=== PATIENT | female | born 1955 | race Caucasian/White ===

== ENCOUNTER → 2020-11-13 | Outpatient (CLI) | payer MEDICARE ==
[2020-11-14 09:47] LABS: Stool Occult Bld Immuno 1 Negative (NEGATIVE)
== END | disposition home or self-care (01) ==
LOC: LAB SHORT 14:42 → LAB 14:42 → LAB FUT 09-27 12:20
PROVIDERS: Family Medicine
DX: Z12.11 Encounter for screening for malignant neoplasm of colon (principal); E78.5 Hyperlipidemia, unspecified; R79.9 Abnormal finding of blood chemistry, unspecified
CPT/HCPCS: G0328

== ENCOUNTER 2024-10-24 08:54 | Day surgery (SDC) | payer OTHER ==
[~2024-10-24] VITALS: Ht 160 cm; Wt 50.9 kg
[2024-10-24] VITALS (15 sets, daily range): BP systolic 90–137; BP diastolic 52–91
[~2024-10-24 08:54] MED LIST: ALEN70 PO; CeFAZolin Sodium 2,000 MG in NS 100 ML IV SCH
[2024-10-24] MEDS ORDERED: Bupivacaine 0.25% Epi 1:200000 30 ML Vial ONE ×2 (09:27→13:28)
[2024-10-24] MEDS ORDERED: Midazolam HCl 1MG / ML 2ML Vial ONE (09:55)
[2024-10-24] MEDS ORDERED: FentaNYL Citrate 50 MCG/ML 5 ML Injection ONE (09:55)
[2024-10-24] MEDS ORDERED: Rocuronium Bromide 10 MG/ML 5ML Injection IV ONE (09:56)
[2024-10-24] MEDS ORDERED: Ondansetron HCl 2 MG / ML 2ML Vial ONE (10:30)
[2024-10-24] MEDS ORDERED: Dexamethasone Sod Phos 10 MG/ML 1ML VIAL ONE (10:30)
[2024-10-24] MEDS ORDERED: HYDROmorphone HCl/Pf 1MG SYR IV PRN ×2 (12:45)
[2024-10-24] MEDS ORDERED: Ondansetron HCl 2 MG / ML 2ML Vial IV PRN ×2 (12:45→15:10)
[2024-10-24] MEDS ORDERED: FentaNYL Citrate 50 MCG/ML 2 ML Injection IV PRN ×3 (12:45→15:15)
[2024-10-24] MEDS ORDERED: Sugammadex Sodium 200 MG/2ML SDV (100 MG/ML) ONE (12:55)
[2024-10-24] MEDS ORDERED: Ketorolac Tromethamine 30mg Vial ONE (12:55)
[2024-10-24] MEDS ORDERED: Estradiol Vag Cream 0.1 MG/G 42.5 GM Tube ONE (13:58)
--- NOTE | 2024-10-24 14:03 | NUR ---
10/24/24 1403 Abida Briones ESTRADIOL VAGINAL CREAM 0.01% GIVEN TO STERILE FIELD. VAGINAL PACKING WAS THEN COATED IN ESTRADIOL VAGINAL CREAM AND PLACED IN VAGINA.
[2024-10-24] MEDS ORDERED: HYDROmorphone HCl/Pf 1MG SYR ONE (14:32)
--- NOTE | 2024-10-24 15:44 | NUR ---
ARRIVAL TO UNIT AFTER RECEIVING REPORT FROM CLOTH DESIZING RANGE OPERATOR CHIEF, PATIENT TRANSFERRED TO UNIT VIA GURNEY AT APPROX 1530. S/P ROBOTIC TOTAL LAP HYSTER. VSS. ON ROOM AIR, SATs >90%. X4 LAP SITES W/ WOUND GLUE C/D/I. DENIES PAIN. DENIES N/V - WATER AND SMALL SNACKS WITHIN REACH. IVF INFUSING TO GRAVITY. DIAZ CATHETER IN PLACE - DRAINING YELLOW URINE TO GRAVITY. ORDERS TO REMOVE W/ VAGINAL PACKING THE MORNING OF POD 1. NO BLEEDING NOTED ON JONATHAN PAD. SPOUSE AT BEDSIDE. CALL LIGHT IN REACH.
[2024-10-24] MEDS ORDERED: Ketorolac Tromethamine 30mg Vial IV SCH (18:00)
--- NOTE | 2024-10-24 18:07 | NUR ---
SHIFT SUMMARY NO ACUTE CHANGES SINCE ARRIVAL TO UNIT. S/P ROBOTIC TOTAL LAP HYSTER. VSS. X4 LAP SITES W/ WOUND GLUE C/D/I. TOLERATING PO INTAKE. DIAZ IN PLACE - DRAINING YELLOW URINE TO GRAVITY. VAGINAL PACKING IN PLACE - TO BE REMOVED POD 1 MORNING. SCANT VAGINAL BLEEDING ON PAD. BED MOBILE, HAS YET TO AMBULATE OOB POST OP. CALL LIGHT IN REACH. SPOUSE AT BEDSIDE.
--- NOTE | 2024-10-24 19:15 | NUR ---
ASSUMED CARE ASSUMED CARE, REPORT RECEIVED FROM DAY RN, YARA. PT IS AOX4 W/VSS. DENIES N/T, N/V, CHEST PAIN OR PRESSURE. ABD LAP SITES W/TISSUE ADHESIVE CDI, NO DRAINAGE NOTED. NO VAGINAL BLEEDING AT THIS TIME. IS MELANI PO INTAKE. IV PATENT. PAIN MANAGED PER EMAR. DIAZ TO GRAVITY DRAIN WITH YELLOW URINE NOTED. PT EAGER FOR DISCHARGE HOME. NO ORDERS AT THIS TIME. FAMILY ATTENTIVE AT BEDSIDE. HAS CALL LIGHT IN REACH. PLANS TO AMBULATE SOON WITH ASSISTANCE
--- NOTE | 2024-10-25 04:28 | NUR ---
SHIFT SUMMARY NO ACUTE CHANGES T/O SHIFT. PT ORIGINALLY REQUESTED TO D/C HOME AROUND 2100, BUT ULTIMATELY DECIDED TO STAY RELATED TO BEING "SO LATE AT NIGHT." PACKING AND DIAZ REMOVED. PT IS POD 1 S/P ROBOTIC HYSTER WITH A&P REPAIR. SCANT BLEEDING NOTED. PAIN MANAGED PER EMAR. PT VOIDING AND TOLERATING PO INTAKE, DENIES N/V. A/OX4 WITH VSS. IS AMBULATING IND/SBA. DC INSTRUCTIONS PROVIDED. IV PATENT AND SL. PLAN FOR DC IN THE MORNING. WILL GIVE REPORT TO ONCOMING RN. HAS CALL LIGHT IN REACH AND ABLE TO MAKE NEEDS KNOWN.
[2024-10-25 05:24] VITALS: BP 113/66
[2024-10-25 07:13] VITALS: BP 108/56
--- NOTE | 2024-10-25 09:12 | NUR ---
DISCHARGE NOTE THIS RN ASSUMED CARE AT APPROX 0715. POD 1 ROBOTIC TOTAL LAP HYSTER. VSS. PAIN MANAGED W/ PRESCRIBED MEDICATION, KPAD. VSS. X4 LAP SITES C/D/I. REPORTS SCANT VAGINAL BLEEDING. VAGINAL PACKING REMOVED BY NIGHT RN. VOIDING SINCE DIAZ REMOVAL BY NIGHT RN. TOLERATING PO INTAKE. WRITTEN AND VERBAL EDUCATION PROVIDED BY NIGHT RN - PATIENT STATES UNDERSTANDING THIS MORNING. IV REMOVED. PERSONAL BELONGINGS W/ PATIENT. PATIENTs SPOUSE TO TRANSFER PATIENT HOME. PATIENT TRANSFERRED OFF UNIT VIA AT APPROX 0905.
== END 2024-10-25 09:05 | disposition home or self-care (01) ==
LOC: ORSCMMR 08:54 → ORD 10:45 → SURS 15:17 → ORSCMMR 10-25 09:05
PROVIDERS: Obstetrics & Gynecology
PROC: 0UT98ZZ Resection of Uterus, Via Natural or Artificial Opening Endoscopic (ICD-10-PCS; principal; 2024-10-24 10:45)
PROC: 0UT18ZZ Resection of Left Ovary, Via Natural or Artificial Opening Endoscopic (ICD-10-PCS; principal; 2024-10-24 10:45)
PROC: 0UT78ZZ Resection of Bilateral Fallopian Tubes, Via Natural or Artificial Opening Endoscopic (ICD-10-PCS; principal; 2024-10-24 10:45)
PROC: 0JQC0ZZ Repair Pelvic Region Subcutaneous Tissue and Fascia, Open Approach (ICD-10-PCS; principal; 2024-10-24 10:45)
PROC: 8E0W8CZ Robotic Assisted Procedure of Trunk Region, Via Natural or Artificial Opening Endoscopic (ICD-10-PCS; principal; 2024-10-24 10:45)
DX: N81.2 Incomplete uterovaginal prolapse (principal); N88.0 Leukoplakia of cervix uteri
CPT/HCPCS: 86850; 86900; 86901; 88307; 94760; A9270; J0690; J1100; J1171; J1885; J2250; J2405; J2704; J3010; J7120